=== PATIENT | male | born 1970 | race Caucasian/White ===

== ENCOUNTER 2019-09-05 05:58 | Emergency (ER) | payer OTHER, SELFPAY ==
--- NOTE | ~2019-09-05 | US_ITS ---
EXAMINATION: US venous doppler [facility] DATE: 09/05/2019 07:35 INDICATION: Left lower limb pain and redness TECHNIQUE: Buchanan scale images without and with compression and Doppler images of the left lower extrem ity veins were obtained. COMPARISON: None FINDINGS: The left common femoral vein, profunda femoral vein, femoral vein, popliteal vein, peroneal trunk, posterior tibial veins, and greater saphenous vein are patent. There is thrombosis and superf icial varicose veins of the medial calf in the area of clinical concern. IMPRESSION: 1. Patent left lower extremity veins. No evidence of deep venous thrombosis. 2. Thrombosis in superficial varicose veins of the medial calf. Reviewed, dictated and finalized at location A.
[2019-09-05 06:06] VITALS: BP 180/108; PULSE 64; RESP 16; TEMP 36.9; O2SAT 98
[2019-09-05 06:43] LABS: Basophils Percent Auto 0.3 % (0.2-1.2); Eosinophils Absolute Auto 0.1 K/mm3 (0-0.3); Eosinophils Percent Auto 1.7 % (0-4.4); Hematocrit 44.2 % (42.0-52.0); Hemoglobin 14.5 g/dL (14.0-18.0); Immature Granulocyte Absolute 0.01 K/mm3 (0.00-0.031); Immature Granulocyte Percent A 0.2 % (0-0.5); Lymphocytes Absolute Auto 2.75 K/mm3 (0.9-3.2); Lymphocytes Percent Auto 43.5 % (18.3-44.2); Mean Corpuscular HGB Conc 32.8 g/dl (32-36); Mean Corpuscular Hemoglobin 32.4 pg (26-34); Mean Corpuscular Volume 98.9 fl (80-100); Mean Platelet Volume 8.2 fl (7.4-10.4); Monocytes Absolute Auto 0.6 K/mm3 (0.1-0.6); Monocytes Percent Auto 9.3 % (2.6-8.5); Neutrophils Absolute Auto 2.8 K/mm3 (1.3-6.7); Platelet Count Result 280 k/mm3 (150-375); Red Blood Count 4.47 M/mm3 (4.6-6.20); Red Cell Distribution Width 14.1 % (11.5-14.5); White Blood Count 6.3 K/mm3 (4.5-10.0)
[2019-09-05 06:51] LABS: Prothrombin Time 12.6 Seconds (11.1-14.7)
[2019-09-05 06:57] LABS: Alanine Aminotransferase 16 U/L (4-50); Albumin Level 3.9 g/dL (3.5-5.1); Alkaline Phosphatase 58 U/L (38-126); Aspartate Amino Transferase 21 U/L (17-59); Bilirubin,Total 0.5 mg/dL (0.2-1.3); Blood Urea Nitrogen 7 mg/dL (9-20); CRP 0.8 mg/dL (<1.0); Calcium 8.7 mg/dL (8.4-10.2); Carbon Dioxide 31 mmol/L (22-30); Chloride 105 mmol/L (98-107); Estimated Glomerular Filt Rate > 60; Glucose 107 mg/dL (75-110); Sodium 139 mmol/L (137-145)
--- NOTE | 2019-09-05 07:04 | ED.EXTPRO ---
HPI - Extremity Problem General Chief complaint: Extremity Problem,Nontraumatic Stated complaint: blood clot in my leg. Left leg pain Time Seen by Provider: 09/05/19 07:02 History of Present Illness HPI Narrative: Patient presents with a sore on his left calf. He noticed that yesterday. He cut the grass 3 days ago, no known trauma or bug bite. The red area is about 2 inches x 1 inch. He gauges it 5 out of 10 on pain, but has not taken any medicine like Tylenol or ibuprofen. He had a history of a blood clot many years ago. He is no longer on any blood thinners. He has not been sick in the last week or 2 no fever chills sweats or cough. He denies smoking drinking and drug. His surgeries include gastric sleeve, cholecystectomy, and carpal tunnel. MD Complaint: extremity pain and extremity swelling Onset (ago): day(s) Related Data Home Medications Medication Instructions Recorded Confirmed cholecalciferol (vitamin D3) 25 1,000 unit PO DAILY 04/13/19 mcg (1,000 unit) capsule duloxetine 60 mg capsule,delayed 60 mg PO DAILY 04/13/19 release ferrous sulfate 325 mg (65 mg 325 mg PO BID 04/13/19 iron) tablet fludrocortisone 0.1 mg tablet 0.1 mg PO .QOD tablet 04/13/19 iloperidone 4 mg tablet 4 mg PO BID tablet 04/13/19 armodafinil mg PO 09/05/19 brexpiprazole [Rexulti] mg 09/05/19 ibuprofen 800 mg PO TID 09/05/19 omeprazole 09/05/19 Allergies Allergy/AdvReac Type Severity Reaction Status Date / Time Mushroom Allergy Severe Hives / Uncoded 09/05/19 06:08 Red Face Review of Systems Review of Systems: Narrative: CONSTITUTIONAL: Denies fever, chills, or sweats. EYES: Denies visual changes, redness, or discharge. ENT: Denies rhinorrhea, congestion, sore throat, or otalgia. CARDIOVASCULAR: Denies chest pain, palpitations, or edema. RESPIRATORY: Denies cough or dyspnea. GASTROINTESTINAL: Denies abdominal pain, nausea, vomiting, or diarrhea. GENITOURINARY: Denies dysuria or hematuria. SKIN: Denies itching. MUSCULOSKELETAL: Denies back pain, joint pain, or myalgia. NEUROLOGIC: Denies headache, numbness, or weakness. PSYCHIATRIC: Denies anxiety or depression. [facility] Surgical History Surgical History (Updated 09/05/19 @ 07:11 by Batsheva Osborne MD) History of carpal tunnel release History of cholecystectomy Social History Social History Smoking status: Former smoker Smoking end date: 04/26/10 Alcohol intake: current Gender identity (if verbalized by the patient): Male Exam Narrative: Exam Narrative: GENERAL: Well-appearing, well-nourished, and in no acute distress.Morbid obesty. HEAD: Normocephalic, atraumatic. EYES: PERRLA and EOMI. ENT: Nares clear, no rhinorrhea or epistaxis. Mucous membranes moist. NECK: Supple. CHEST: Clear to auscultation. No respiratory distress. HEART: Regular rate and rhythm. No murmur heard. Normal peripheral pulses. ABDOMEN: Soft, nontender, nondistended, normal active bowel sounds. EXTREMITIES: Normal range of motion. An area on the upper inner left calf, about 2 inches x 1 inch, of redness and tenderness, no fluctuance, or drainage. SKIN: Warm, dry, no rash. NEURO: No focal deficits. Alert and oriented x3. PSYCH: Normal mood and affect. Course Reevaluation(s) Reevaluation #1: Went in to tell the patient about the small blood clot in a superficial varicose vein. He said the Tylenol did not make any difference, but that it did not really hurt. I explained that no blood thinners were necessary for superficial blood clots. He can use warm compresses, and Tylenol. He says that he does take ibuprofen despite his gastric sleeve, and I reminded him that he was not supposed to. He can resume normal activity Date: 09/05/19 Time: 08:11 Vital Signs Vital signs: Vital Signs Temperature 98.5 F 09/05/19 06:06 Pulse Rate 64 09/05/19 06:06 Respiratory Rate 16 09/05/19 06:06 Blood Pressure 180/108 H 05
--- NOTE | 2019-09-05 07:15 | PC.NURSE ---
Assumed pt care at this time from ALVIN Avalos, pt being taken to ultrasound in wheelchair by tech.
[2019-09-05] MEDS: CEPHALEXIN 500 MG CAPSULE PO (07:33)
[2019-09-05] MEDS: ACETAMINOPHEN 325 MG TABLET 650 MG PO (07:33)
[2019-09-05 07:35] VITALS: BP 175/103; PULSE 70; RESP 16; O2SAT 97
[2019-09-05 08:20] VITALS: BP 170/103; PULSE 65; RESP 18; O2SAT 100
== END 2019-09-05 08:21 | disposition home or self-care (01) ==
PROVIDERS: General Practice; Emergency Provider Emergency Medicine; PCP Family Medicine
DX: L03.116 Cellulitis of left lower limb (principal); I83.92 Asymptomatic varicose veins of left lower extremity; Z86.711 Personal history of pulmonary embolism; Z87.891 Personal history of nicotine dependence
CPT/HCPCS: 36415; 80053; 85025; 85610; 85730; 86140; 93971; 99284; A9270

== ENCOUNTER → 2019-11-17 11:41 | Outpatient (CLI) | payer OTHER, SELFPAY ==
--- NOTE | ~2019-11-17 | US_ITS ---
EXAMINATION: US venous doppler [facility] DATE: 11/17/2019 12:16 INDICATION: Lower limb pain. TECHNIQUE: Grayscale ultrasound images without and with compression and Doppler ultrasound images of the bilateral lower extremity veins were obtained. COMPARISON: Ultrasound 09/05/2019 FINDINGS: The visualized portions of right common femoral vein, profunda (deep) femoral vein, femoral vein, pop liteal vein, peroneal veins, posterior tibial veins, and greater saphenous vein outflow are patent. T here is a large right-sided Mcneill's cyst. The visualized portions of left common femoral vein, profunda femoral vein, femoral vein, popliteal v ein, peroneal veins, posterior tibial veins, and greater saphenous vein outflow are patent. IMPRESSION: 1. No deep venous thrombosis. 2. Large right-sided Mcneill's cyst. Reviewed, dictated and finalized at location A.
== END ==
PROVIDERS: PCP Family Medicine; Visit Provider Physician Assistant
DX: M79.89 Other specified soft tissue disorders (principal); M71.21 Synovial cyst of popliteal space [Baker], right knee
CPT/HCPCS: 93970

== ENCOUNTER 2021-05-14 00:58 | Day surgery (SDC) | payer OTHER, SELFPAY ==
[2021-05-02 14:27] VITALS: BMI 46.1
--- NOTE | 2021-05-14 02:22 | WPDANESEPPF ---
Anes - Initial Pre Proc Eval Procedure: Operation Date: 05/14/21 07:30 Proposed Procedures p Screening Colonoscopy - Dimitrios Odom MD Date/Time: 05/14/21 02:22 Surgeon: Dimitrios Odom MD Pre Op Diagnosis: neoplasm screening Patient Data Age: 50 Gender: M Height: 1.83 m Weight: 154.3 kg Allergies Allergy/AdvReac Type Severity Reaction Status Date / Time Mushroom Allergy Severe Hives / Uncoded 05/14/21 06:30 Red Face Home Medications Medication Instructions Recorded Confirmed Type cholecalciferol (vitamin D3) 25 1,000 unit PO DAILY 04/13/19 05/14/21 History mcg (1,000 unit) capsule duloxetine 60 mg capsule,delayed 60 mg PO DAILY 04/13/19 05/14/21 History release armodafinil 200 mg PO DAILY 09/05/19 05/14/21 History brexpiprazole [Rexulti] 2 mg PO DAILY 09/05/19 05/14/21 History ibuprofen 800 mg PO TID 09/05/19 05/14/21 History ferrous sulfate 325 mg (65 mg 325 mg PO BID #270 tablet 09/12/19 05/14/21 Rx iron) tablet omeprazole 20 mg capsule,delayed See Rx Instructions .ROUTE 07/22/20 05/14/21 Rx release .COMPLEX #180 capsule naltrexone 50 mg tablet 50 mg PO DAILY #30 tablet 03/04/21 05/14/21 Rx loratadine 10 mg tablet See Rx Instructions .ROUTE 04/01/21 05/14/21 Rx .COMPLEX #90 tablet cyanocobalamin (vitamin B-12) 100 mcg SUBCUT MONTHLY 05/02/21 05/14/21 History Patient hx anesthesia problems: none Family hx anesthesia problems: none Results Review: All pre-operative results and documents have been reviewed as part of the pre-operative evaluation. [facility] Past Medical History Medical History (Updated 05/14/21 @ 07:21 by Dimitrios Odom MD) ADD (attention deficit disorder) Anxiety Colon cancer screening Contracture, right elbow Diabetes type 2, controlled Essential hypertension Finger fracture, right Obstructive sleep apnea Personal history of malignant neoplasm of testis Trigger thumb of right hand Surgical History Surgical History (Updated 05/14/21 @ 02:23 by Cedrick Magana DO) History of carpal tunnel release History of cholecystectomy History of sleeve gastrectomy Family History Family History Mother Hypertension Family history of chronic obstructive pulmonary disease Diabetes mellitus Family history of malignant neoplasm of stomach Family history of kidney disease Family history of cardiovascular disease Father Family history of obesity Family history of cardiovascular disease Other Acute myocardial infarction Family history of congenital heart disease Malignant neoplasm of prostate Social History Social History Smoking status: Former smoker Tobacco type: cigars Smoking end date: 04/26/10 Additional smoking assessment comments: 5-6 PER DAY Alcohol intake: former Alcohol use details: DRANK A LOT PRIOR TO JAN 26 2021 Substance use type: does not use Living arrangements: with family Gender identity (if verbalized by the patient): Male Spiritual care concerns: No Anes - Eval Final PreProcedure Day of Procedure 05/14/21 02:22 Patient weight: morbidly obese Heart: regular rate and rhythm Lungs: clear to auscultation and normal air movement Airway: Mallampati scale class II Neurological: alert and oriented Last oral intake: >/= 8 hours ASA classification: III Emergent: no Anesthetic plan: proceed Anesthesia type and monitoring: general GIVS and standard monitoring Results Review: All pre-operative results and documents have been reviewed as part of the pre-operative evaluation. Informed Consent: The patient's anesthetic plan and its attendant risks and benefits were discussed with the patient/family/POA. Questions were solicited and answers provided to the satisfaction of the patient/family/POA.
[2021-05-14 06:20] VITALS: BP 154/97; PULSE 76; RESP 18; TEMP 36.4; O2SAT 100; BMI 47.8
[2021-05-14] MEDS: LACTATED RINGERS 1,000 ML 150 ML IV CONT (06:46)
--- NOTE | 2021-05-14 07:21 | PM.HPGS ---
History of Present Illness History of Present Illness Consent: Risks, benefits, and alternatives have been discussed and questions answered. Patient agrees to proceed with procedure. Chief complaint: neoplasm screening Narrative: Bo Mendoza is a 50 year old male here for first screening colonoscopy Review of Systems Constitutional: Constitutional: Denies headache(s) and Denies weakness Eyes: Eyes: Denies blurry vision ENT: Reports Normal hearing present, Denies headache(s) and Denies neck pain Cardiovascular: Cardiovascular: Denies chest pain and Denies dyspnea Respiratory: Respiratory: Denies dyspnea Gastrointestinal: Gastrointestinal: Reports no additional gastrointestinal complaints Genitourinary: Genitourinary: Denies dysuria Musculoskeletal: Musculoskeletal: Denies neck pain Integumentary/Breasts: Skin/Breast: Denies dry skin Neurologic: Reports Normal hearing present, Denies headache(s) and Denies weakness Psychiatric: Psychiatric: Denies anxiety Endocrine: Endocrine: Denies change in body appearance Hematologic/Lymphatic: Hematologic/Lymphatic: Denies easy bleeding Allergic/Immunologic: Allergic/Immunologic: Denies urticaria PMF Past Medical History Medical History (Updated 05/14/21 @ 07:21 by Dimitrios Odom MD) ADD (attention deficit disorder) Anxiety Colon cancer screening Contracture, right elbow Diabetes type 2, controlled Essential hypertension Finger fracture, right Obstructive sleep apnea Personal history of malignant neoplasm of testis Trigger thumb of right hand Surgical History Surgical History (Updated 05/14/21 @ 02:23 by Cedrick Magana DO) History of carpal tunnel release History of cholecystectomy History of sleeve gastrectomy Family History Family History Mother Hypertension Family history of chronic obstructive pulmonary disease Diabetes mellitus Family history of malignant neoplasm of stomach Family history of kidney disease Family history of cardiovascular disease Father Family history of obesity Family history of cardiovascular disease Other Acute myocardial infarction Family history of congenital heart disease Malignant neoplasm of prostate Social History Social History Smoking status: Former smoker Tobacco type: cigars Smoking end date: 04/26/10 Additional smoking assessment comments: 5-6 PER DAY Alcohol intake: former Alcohol use details: DRANK A LOT PRIOR TO JAN 26 2021 Substance use type: does not use Living arrangements: with family Gender identity (if verbalized by the patient): Male Spiritual care concerns: No Meds Home Medications and Allergies Home Medications Medication Instructions Recorded Confirmed Type cholecalciferol (vitamin D3) 25 1,000 unit PO DAILY 04/13/19 05/14/21 History mcg (1,000 unit) capsule duloxetine 60 mg capsule,delayed 60 mg PO DAILY 04/13/19 05/14/21 History release armodafinil 200 mg PO DAILY 09/05/19 05/14/21 History brexpiprazole [Rexulti] 2 mg PO DAILY 09/05/19 05/14/21 History ibuprofen 800 mg PO TID 09/05/19 05/14/21 History ferrous sulfate 325 mg (65 mg 325 mg PO BID #270 tablet 09/12/19 05/14/21 Rx iron) tablet omeprazole 20 mg capsule,delayed See Rx Instructions .ROUTE 07/22/20 05/14/21 Rx release .COMPLEX #180 capsule naltrexone 50 mg tablet 50 mg PO DAILY #30 tablet 03/04/21 05/14/21 Rx loratadine 10 mg tablet See Rx Instructions .ROUTE 04/01/21 05/14/21 Rx .COMPLEX #90 tablet cyanocobalamin (vitamin B-12) 100 mcg SUBCUT MONTHLY 05/02/21 05/14/21 History Allergies Allergy/AdvReac Type Severity Reaction Status Date / Time Mushroom Allergy Severe Hives / Uncoded 05/14/21 06:30 Red Face Vital Signs Vital Signs - 24 hr 05/14/21 06:20 Temperature 97.5 F L Pulse Rate 76 Respiratory Rate 18 Blood Pr
[2021-05-14 07:51] VITALS: BP 128/62; PULSE 76; RESP 29; O2SAT 100
[2021-05-14 08:01] VITALS: BP 110/70; PULSE 72; RESP 27; O2SAT 100
[2021-05-14 08:11] VITALS: BP 135/67; PULSE 67; RESP 25; O2SAT 100
== END 2021-05-14 08:20 | disposition home or self-care (01) ==
PROVIDERS: PCP Family Medicine; Visit Provider Internal Medicine Gastroenterology
PROC: 0DJD8ZZ Inspection of Lower Intestinal Tract, Via Natural or Artificial Opening Endoscopic (ICD-10-PCS; CPT 45378; principal; 2021-05-14 07:30)
DX: Z12.11 Encounter for screening for malignant neoplasm of colon (principal); K57.30 Diverticulosis of large intestine without perforation or abscess without bleeding; K64.8 Other hemorrhoids; F98.8 Other specified behavioral and emotional disorders with onset usually occurring in childhood and adolescence; E11.9 Type 2 diabetes mellitus without complications; I10 Essential (primary) hypertension; F41.9 Anxiety disorder, unspecified; G47.33 Obstructive sleep apnea (adult) (pediatric); Z85.47 Personal history of malignant neoplasm of testis; Z98.84 Bariatric surgery status; Z87.891 Personal history of nicotine dependence; E66.01 Morbid (severe) obesity due to excess calories; Z68.42 Body mass index [BMI] 45.0-49.9, adult
CPT/HCPCS: 45378; J2704; J7120

== ENCOUNTER 2022-06-24 13:15 | Emergency (ER) | payer OTHER, SELFPAY ==
--- NOTE | ~2022-06-24 | US_ITS ---
EXAMINATION: US venous doppler [facility] DATE: 06/24/2022 14:50 INDICATION: Left calf pain. TECHNIQUE: Grayscale ultrasound images without and with compression and Doppler ultrasound images of the left lower extremity veins were obtained. COMPARISON: Ultrasound 11/17/2019 FINDINGS: The visualized portions of left common femoral vein, profunda (deep) femoral vein, femoral vein, popl iteal vein, peroneal veins, posterior tibial veins, and greater saphenous vein outflow are patent. IMPRESSION: 1. No deep venous thrombosis. Reviewed, dictated and finalized at location A. [employer]
[2022-06-24 13:57] VITALS: BP 169/68; PULSE 84; RESP 16; TEMP 36.4; O2SAT 100
--- NOTE | 2022-06-24 14:33 | PC.NURSE ---
Patient off unit to US.
--- NOTE | 2022-06-24 15:30 | PC.NURSE ---
EDP at bedside to discuss plan of care with patient.
--- NOTE | 2022-06-24 15:36 | ED.EXTPRO ---
HPI - Extremity Problem General Chief complaint: Extremity Problem,Nontraumatic Stated complaint: L CALF PAIN Time Seen by Provider: 06/24/22 14:18 Source: patient Mode of arrival: ambulatory Limitations: no limitations History of Present Illness HPI Narrative: 51-year-old male presents today with complaints of left calf pain with redness that started about 3 days ago. Patient had concerns for possible DVT. Patient has no risk factors for DVT. Denies any recent travel, sedentary lifestyle. No swelling noted to the left leg. Redness to the left medial rudd area. No calf tenderness. At time of assessment ultrasound venous Doppler was already obtained and was negative for DVT. Patient denies any fevers, body aches, chills. Patient does have a history of having a hematoma to the left leg, and cellulitis multiple times in the past. Related Data Home Medications Medication Instructions Recorded Confirmed cholecalciferol (vitamin D3) 25 1,000 unit PO DAILY 04/13/19 03/29/22 mcg (1,000 unit) capsule duloxetine 60 mg capsule,delayed 60 mg PO DAILY 04/13/19 03/29/22 release (Cymbalta) brexpiprazole 2 mg tablet (Rexulti) 2 mg PO DAILY 09/05/19 03/29/22 ibuprofen 800 mg tablet 800 mg PO TID 09/05/19 03/29/22 cyanocobalamin (vitamin B-12) 100 mcg subcut MONTHLY 05/02/21 03/29/22 1,000 mcg/mL injection kit armodafinil 250 mg tablet 250 mg PO .qd 05/25/22 Allergies Allergy/AdvReac Type Severity Reaction Status Date / Time Mushroom Allergy Severe Hives / Uncoded 05/25/22 13:26 Red Face NKDA Allergy Mild NONE Uncoded 05/25/22 13:26 Review of Systems Review of Systems: CONSTITUTIONAL: Denies fever, chills, or sweats. EYES: Denies visual changes, redness, or discharge. ENT: Denies rhinorrhea, congestion, sore throat, or otalgia. CARDIOVASCULAR: Denies chest pain, palpitations, or edema. RESPIRATORY: Denies cough or dyspnea. GASTROINTESTINAL: Denies abdominal pain, nausea, vomiting, or diarrhea. GENITOURINARY: Denies dysuria or hematuria. SKIN: Denies rash or itching. MUSCULOSKELETAL: Left lower leg pain with redness. Denies back pain, joint pain, or myalgia. NEUROLOGIC: Denies headache, numbness, dizziness, or weakness. PSYCHIATRIC: Denies anxiety or depression. [facility] Past Medical History Medical History ADD (attention deficit disorder) Anxiety Colon cancer screening Contracture, right elbow Diabetes type 2, controlled Essential hypertension Finger fracture, right Obstructive sleep apnea Personal history of malignant neoplasm of testis Trigger thumb of right hand Surgical History Surgical History History of carpal tunnel release History of cholecystectomy History of sleeve gastrectomy Family History Family History Mother Hypertension Family history of chronic obstructive pulmonary disease Diabetes mellitus Family history of malignant neoplasm of stomach Family history of kidney disease Family history of cardiovascular disease Father Family history of obesity Family history of cardiovascular disease Other Acute myocardial infarction Family history of congenital heart disease Malignant neoplasm of prostate Social History Social History (Updated 05/25/22 @ 13:30 by Steve Howard MA) Smoking packs per day: 2 Smoking cigarettes per day: 40.0 Years smoked: 20 Smoking pack-years: 40.00 Smoking status: Former smoker Tobacco type: cigarettes and cigars Smoking end date: 04/26/10 Additional smoking assessment comments: 5-6 PER DAY Alcohol intake: former Alcohol use details: DRANK A LOT PRIOR TO JAN 26 2021 Substance use: never Substance use type: does not use Lack of Transportation: No Lack of Food: Never True Current Housing: I Have Housing Concerned About Future Housing: No
[2022-06-24] MEDS: CEPHALEXIN 500 MG CAPSULE PO (15:42)
== END 2022-06-24 15:52 | disposition home or self-care (01) ==
PROVIDERS: Emergency Provider Nurse Practitioner Family; PCP Family Medicine
DX: L03.116 Cellulitis of left lower limb (principal); I10 Essential (primary) hypertension; E11.9 Type 2 diabetes mellitus without complications; F98.8 Other specified behavioral and emotional disorders with onset usually occurring in childhood and adolescence; G47.33 Obstructive sleep apnea (adult) (pediatric); F41.9 Anxiety disorder, unspecified; Z85.47 Personal history of malignant neoplasm of testis; Z98.84 Bariatric surgery status; Z87.891 Personal history of nicotine dependence
CPT/HCPCS: 93971; 99284; A9270

== ENCOUNTER 2022-07-10 11:19 | Outpatient (CLI) | payer OTHER, SELFPAY ==
[2022-07-13 15:04] LABS: Kit Draw Collected
== END 2022-07-10 11:20 | disposition home or self-care (01) ==
LOC: ANHGOSHLAB 11:20
PROVIDERS: PCP Family Medicine; Visit Provider Family Medicine
DX: G47.33 Obstructive sleep apnea (adult) (pediatric) (principal); E66.01 Morbid (severe) obesity due to excess calories; E11.9 Type 2 diabetes mellitus without complications
CPT/HCPCS: 36415

== ENCOUNTER → 2022-08-24 09:45 | Outpatient (CLI) | payer OTHER, SELFPAY ==
--- NOTE | ~2022-08-24 | CT_ITS ---
CT of the Abdomen and Pelvis: Indication: Hematuria Technique: 2.5 mm axial scans were obtained through the abdomen and pelvis prior to and following in travenous administration of 130 cc of Omnipaque 350. Dose reduction technique was used on this scan b y utilizing automated exposure control and iterative reconstruction technique. The dose-length produc t (DLP) was 2461.57 mGy-cm. COMPARISON: 05/09/2012 Findings: Scans through the lung bases demonstrate bibasilar scarring/atelectatic change. The liver, spleen, pancreas, adrenals and kidneys are within normal limits. Cholecystectomy clips are present. No evidence of aortic aneurysm. No lymphadenopathy. No bowel obstruction or bowel wall thickening. There is no evidence to suggest acute appendicitis. Images through the pelvis were performed. Urinary bladder unremarkable. Prostate gland and seminal ve sicles are unremarkable. No ascites. Bilateral L5 pars interarticularis defects are present, with gra de 1 anterolisthesis of L5 over S1. Impression: No etiology for hematuria identified. Bilateral L5 pars interarticularis defects, with grade 1 anterolisthesis of L5 over S1. Reviewed, dictated and finalized at [facility]. Impression: No etiology for hematuria identified. Bilateral L5 pars interarticularis defects, with grade 1 anterolisthesis of L5 over S1.
[2022-08-24 10:04] LABS: Estimated Glomerular Filt Rate > 60
== END ==
PROVIDERS: PCP Family Medicine; Visit Provider Nurse Practitioner Family
DX: R31.0 Gross hematuria (principal)
CPT/HCPCS: 74178; Q9967

== ENCOUNTER 2023-11-28 12:06 | Emergency (ER) | payer BC, SELFPAY ==
--- NOTE | ~2023-11-28 | CT_ITS ---
EXAMINATION: CT orbit BI w con DATE: 11/28/2023 14:34 INDICATION: Left eye floaters TECHNIQUE: Computed tomography (CT) of the orbits was performed in conjunction with the CT angiograph y, using a total of 200 CC Omnipaque 350 intravenous contrast. The mA was adjusted according to patie nt size. Iterative reconstruction technique was employed. Exam dose: 2974.05 mGy-cm total exam DLP. COMPARISON: 12/05/2014 CT head FINDINGS: The ocular globes appear symmetric and unremarkable. Optic nerves and extraocular appear sy mmetric. No intraconal or extraconal mass lesion. The bony smallwood of the orbit are intact. The frontal sinuses, ethmoid air cells and maxillary sinuses are normally developed and aerated. IMPRESSION: No significant abnormality Reviewed, dictated and finalized at Location A. Reviewed, dictated and finalized at location J. IMPRESSION: No significant abnormality
--- NOTE | ~2023-11-28 | CT_ITS ---
EXAMINATION: CTA brain carotid DATE: 11/28/2023 14:37 INDICATION: Left eye floaters TECHNIQUE: Computed tomography angiography (CTA) of the chest was performed with 200 CC Omnipaque 350 intravenous contrast timed to evaluate the pulmonary arteries. Coronal maximum intensity projection 3D-reconstructions were created by the technologist. Automated exposure control and iterative reconst ruction technique were employed. Exam dose: 2974.05 mGy-cm total exam DLP. Carotid COMPARISON: 07/05/2018 CT brain, reported normal FINDINGS: The aortic arch and great vessels are intact. No superior mediastinal mass lesion or lymphadenopathy. The common carotid arteries are patent. There is mild right and minimal left carotid bulb calcified plaque with no significant luminal stenos is of the cervical internal carotid arteries. There is minimal calcified plaque of the carotid siphon internal carotid arteries. No significant lum inal stenosis of the intracranial carotid circulation. The vertebral arteries are patent, left vertebral artery dominant. The basilar artery appears normal. The [place] appears intact. No internal carotid, anterior or middle cerebral artery or basil ar or posterior cerebral artery aneurysms or occlusions are identified. No intracranial mass lesion or hemorrhage or cerebrovascular accident. No midline shift or mass effec t. No subdural or epidural hematoma. No intraconal or extraconal orbital mass. The orbital globes appear symmetric and unremarkable. No skull fracture or bone destruction. The paranasal sinuses and mastoid air cells are well-developed and aerated. IMPRESSION: Mild calcified atherosclerosis, without significant stenosis, occlusion, dissection or a neurysm of the vertebrobasilar or cervical or intracranial carotid circulations Reviewed, dictated and finalized at [facility]. Reviewed, dictated and finalized at [facility]. IMPRESSION: Mild calcified atherosclerosis, without significant stenosis, occl usion, dissection or aneurysm of the vertebrobasilar or cervical or intracrania l carotid circulations
[2023-11-28 12:10] VITALS: BP 169/93; PULSE 73; RESP 20; TEMP 36.4; O2SAT 98
--- NOTE | 2023-11-28 13:06 | ED.EYEPROB ---
HPI - Eye Problem General Chief complaint: Eye Problems Stated complaint: eye floaters Time Seen by Provider: 11/28/23 12:44 History of Present Illness HPI Narrative: Patient is a 53-year-old male who presents ER with abnormal vision. Spontaneously yesterday after dropping off a door-order he started having floaters in his left eye. He says it is smoking in like they are a 1000 dots in his visual field. He is still able to see. He also has green string like floaters going through his visual field. No pain in the eye. No trauma to the eye. Patient is on Eliquis because he has history of recurrent thrombophlebitis. Patient has had a lens replacement in the same eye. He does not use glasses or contacts. Related Data Home Medications Medication Instructions Recorded Confirmed duloxetine 60 mg capsule,delayed 60 mg PO DAILY 04/13/19 11/18/23 release (Cymbalta) brexpiprazole 2 mg tablet (Rexulti) 2 mg PO DAILY 09/05/19 11/18/23 Allergies Allergy/AdvReac Type Severity Reaction Status Date / Time Mushroom Allergy Severe Hives / Uncoded 11/18/23 11:01 Red Face NKDA Allergy Mild NONE Uncoded 11/18/23 11:01 Review of Systems Constitutional: Constitutional: Reports no additional constitutional complaints Eyes: Eyes: Denies change in vision and Denies photophobia Comments: Floaters ENT: Reports system reviewed and no additional complaints, except as documented [facility] Past Medical History Medical History ADD (attention deficit disorder) Anxiety Contracture, right elbow Diabetes type 2, controlled Essential hypertension Finger fracture, right Gross hematuria Left knee DJD Left knee pain Obstructive sleep apnea Personal history of malignant neoplasm of testis Trigger thumb of right hand Surgical History Surgical History History of carpal tunnel release History of cholecystectomy History of sleeve gastrectomy Family History Family History Mother Hypertension Family history of chronic obstructive pulmonary disease Diabetes mellitus Family history of malignant neoplasm of stomach Family history of kidney disease Family history of cardiovascular disease Father Family history of obesity Family history of cardiovascular disease Other Acute myocardial infarction Family history of congenital heart disease Malignant neoplasm of prostate Social History Social History Smoking packs per day: 2 Smoking cigarettes per day: 40.0 Years smoked: 20 Smoking pack-years: 40.00 Smoking status: Former smoker Tobacco type: cigarettes and cigars Smoking end date: 04/26/10 Additional smoking assessment comments: 5-6 PER DAY Alcohol intake: former Alcohol use details: DRANK A LOT PRIOR TO JAN 26 2021 Substance use: never Substance use type: does not use Lack of Transportation: No Lack of Food: Never True Current Housing: I Have Housing Concerned About Future Housing: No Difficulty Paying Gas/Electric Bills: No Difficulty Paying for Meds: No Currently Unemployed: No Education: Trade/Vocational Certificate Difficulty w/ Childcare or Family Care: No Living arrangements: with family Gender identity (if verbalized by the patient): Male Spiritual care concerns: No Exam Narrative: GENERAL: Well-appearing, obesity, and in no acute distress. HEAD: Normocephalic, atraumatic. EYES: PERRLA and EOMI. Left eye 20/30 visual acuity, right eye 20/70. Left eye with 14 mmHg intra-ocular pressure. No scleral injection. ENT: Mucous membranes moist.. EXTREMITIES: Normal range of motion. No edema. SKIN: Warm, dry, no rash. NEURO: Alert and oriented x3. PSYCH: Normal mood and affect. Course Vital Signs Vital signs:
[2023-11-28 13:51] LABS: Basophils Percent Auto 0.4 % (0.2-1.2); Eosinophils Absolute Auto 0.1 K/mm3 (0-0.3); Eosinophils Percent Auto 1.1 % (0-4.4); Hemoglobin 14.6 g/dL (14.0-18.0); Immature Granulocyte Absolute 0.02 K/mm3 (0.00-0.031); Immature Granulocyte Percent A 0.3 % (0-0.5); Lymphocytes Absolute Auto 2.71 K/mm3 (0.9-3.2); Lymphocytes Percent Auto 34.5 % (18.3-44.2); Mean Corpuscular Hemoglobin 33.7 pg (26-34); Mean Corpuscular Volume 99.3 fl (80-100); Mean Platelet Volume 8.4 fl (7.4-10.4); Monocytes Absolute Auto 0.8 K/mm3 (0.1-0.6); Monocytes Percent Auto 10.3 % (2.6-8.5); Neutrophils Absolute Auto 4.2 K/mm3 (1.3-6.7); Neutrophils Percent Auto 53.4 % (45.5-73.1); Platelet Count Result 308 k/mm3 (150-375); Red Blood Count 4.33 M/mm3 (4.6-6.20); Red Cell Distribution Width 15.1 % (11.5-14.5); White Blood Count 7.9 K/mm3 (4.5-10.0)
[2023-11-28 13:53] LABS: Alanine Aminotransferase 31 U/L (6-50); Alkaline Phosphatase 71 U/L (38-126); Anion Gap 5 mmol/L (4-12); Aspartate Amino Transferase 30 U/L (17-59); Bilirubin,Total 0.7 mg/dL (0.2-1.3); Blood Urea Nitrogen 8 mg/dL (9-20); Calcium 8.7 mg/dL (8.4-10.2); Carbon Dioxide 29 mmol/L (22-30); Chloride 104 mmol/L (98-107); Estimated CRCL calculation 142 ml/min; Estimated Glomerular Filt Rate > 60; Glucose 84 mg/dL (65-110); Potassium 4.1 mmol/L (3.4-5.0); Sodium 138 mmol/L (137-145)
[2023-11-28 13:54] LABS: Prothrombin Time 13.4 Seconds (11.1-14.7)
[2023-11-28 13:55] LABS: CRP < 0.5 mg/dL (<1.0); Partial Thromboplastin Time 30.7 Seconds (22.3-36.8)
[2023-11-28 14:34] VITALS: O2SAT 97
[2023-11-28 14:40] LABS: Erythrocyte Sedimentation Rate 16 mm/hr (0-20)
[2023-11-28 15:37] VITALS: BP 162/101; PULSE 84; RESP 20; TEMP 36.3; O2SAT 97
== END 2023-11-28 15:41 | disposition short-term general hospital (02) ==
PROVIDERS: Emergency Provider Emergency Medicine; PCP Family Medicine
DX: H43.392 Other vitreous opacities, left eye (principal); E11.9 Type 2 diabetes mellitus without complications; M17.12 Unilateral primary osteoarthritis, left knee; G47.33 Obstructive sleep apnea (adult) (pediatric); F98.8 Other specified behavioral and emotional disorders with onset usually occurring in childhood and adolescence; F41.9 Anxiety disorder, unspecified; Z98.84 Bariatric surgery status; Z85.47 Personal history of malignant neoplasm of testis; Z87.891 Personal history of nicotine dependence; Z90.49 Acquired absence of other specified parts of digestive tract; Z79.01 Long term (current) use of anticoagulants; Z79.899 Other long term (current) drug therapy; I67.2 Cerebral atherosclerosis; Z79.85 Long-term (current) use of injectable non-insulin antidiabetic drugs
CPT/HCPCS: 36415; 70481; 70496; 70498; 80053; 85025; 85610; 85652; 85730; 86140; 99284; Q9967

== ENCOUNTER 2024-09-29 10:35 | Outpatient (CLI) | payer BC, SELFPAY ==
--- NOTE | ~2024-09-29 | CT_ITS ---
EXAMINATION: CT diagnostic chest w con DATE: 09/29/2024 11:34 INDICATION: R93.89 - Abnormal findings on diagnostic imaging of other... TECHNIQUE: Computed tomography (CT) of the chest was initiated with 75 mL Omnipaque-350 intravenous c ontrast. Liner Inserter topogram was obtained. Per notation of the technologist the patient became verbally ag gressive, sat up and got off of the table during the beginning of the scan and no images were obtaine d. No further imaging was obtained. The dose-length product was 0.00 mGy-cm. COMPARISON: None FINDINGS/IMPRESSION: Liner Inserter topogram demonstrates clear lungs and an enlarged cardiac silhouette. No CT images obtained due to patient noncompliance. Reviewed, dictated and finalized at location A.
--- OUTSIDE RECORDS SUMMARY | 2024-09-29 10:39 | XMS_ITS | Encounter Summary ---
Author Organization [facility] Address [address] [place] [address] Phone Care Team Providers Care [employer]acher [employer] Name Role Phone Tiana Charles MD Primary Care Provider [phone] Encounter Details Date Type Department Care Team (Late st Contact Info) Description 08/28/2024 Telephone [facility] Oncology Services [address] [place] [address] Tiana Charles MD [address] [facility] [place] [address] Social History Tobacco Use Types Packs/Day Years Used Date Smoking Tobacco: Former Cigarettes 2 16.4 2 009 - 1992 Passive Smoke Exposure: Never Smokeless Tobacco: Never Alcohol Use Standard Drinks/Week Comments Not Currently 0 (1 standard drink = 0.6 oz pur e alcohol) Sex and Gender Information Value Date Recorded Sex Assigned at Not on file Legal Sex Male 9:42 PM CDT Gender Identity Not on file Sexual Orientation Not on file documented as of this encounter Miscellaneous Notes * Telephone Encounter - Dee Mckinnon PAC - 08/28/2024 4:33 PM CDT noted * Telephone Encounter - Yesenia Jackson MA - 08/28/2024 4:13 PM CDT Called patient to notify him to have labs done prior to appointment with metal patternmaker, Dee Mckinnon. Patient stated he wouldn't be able to have them done until mid week, so I suggested to push him out due to it taking a few days to receive results back from [facility]. Offered patient a new appointmentday and time. He eventually told me he didn't want to deal with the appointment, and wanted to cancel altogether. Made patient aware to call the office if anything changes. documented in this encounter Plan of Treatment Not on file documented as of this encounter Visit Diagnoses Not on filedocumented in this encounter Care Teams [employer] Relationship Specialty Start Date End Date Tiana Charles MD [address] [facility] [place] [address] PCP - General Family Medicine 07/11/24 documented as of this encounter
--- OUTSIDE RECORDS SUMMARY | 2024-09-29 10:40 | XMS_ITS | Clinical Summary ---
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 Active Rexulti 2 MG Tablet Take 1 Tablet by mouth daily. Active DULoxetine (CYMBALTA) [address] Particles Take 60 mg by mouth daily. 08/05/2016 Active ferrous sulfate (RA Iron) 325 (65 Fe) MG Tablet Take 1 Tablet by mouth daily. 08/05/2016 Active losartan (COZAAR) 50 MG Tablet Take 75 mg by mouth daily. Active naltrexone (DEPADE) 50 MG Tablet Take 50 mg by mouth daily. Active omeprazole (PriLOSEC) 40 MG CAPSULE DELAYED RELEASE Take 40 mg by mouth daily. Active Multiple Vitamin (MULTIVITAMIN PO) Take by mouth daily. Active MAGNESIUM PO Take 500 mg by mouth daily. Active Active Problems Problem Noted Date Diagnosed Date Personal history of gastric bypass 07/11/2024 Obstructive sleep apnea on CPAP 07/11/2024 Chronic bronchitis 07/11/2024 Iron deficiency anemia secon atul to inadequate dietary iron intake 07/11/2024 Encounters Date Type Department Care Team Description 08/28/2024 [facility]phone [facility] [address] [place] [address] Tiana Charles MD 07/14/2024 1:00 PM CDT Clinical Support [facility] Oncology Services [address] [place] [address] Dee Mckinnon, PAC Iron deficiency anemia secondary to inadequate dietary iron intake (Primary Dx) Discharge Disposition: Discharged to home or Selfcare 07/14/2024 Travel 07/11/2024 2:00 PM CDT Initial Consult [facility] Oncology Services [address] [place] [address] Dee Mckinnon, PAC Iron deficiency anemia secondary to inadequate dietary iron intake (Primary Dx) Discharge Disposition: Discharged to home or Selfcare 07/11/2024 Travel from Last 3 Months Family History Medical History Relation Name Comments Cancer Maternal Grandmother Heart Disease Maternal Grandmother Cancer Mother Heart Disease Mother Relation Name Status Comments Maternal Grandmother Mother Social History Tobacco Use Types Packs/Day Years [...] on file Sexual Orientation Not on file Last Filed Vital Signs Vital Sign Reading Time Taken Comments Blood Pressure 172/99 07/14/2024 2:09 PM CDT Pulse 97 07/14/2024 2:09 PM CDT Temperature 35.9 C (96.6 F) 07/14/2024 2:09 PM CDT Respiratory Rate 22 07/14/2024 2:09 PM CDT Oxygen Saturation 90% 07/14/2024 2:09 PM CDT Inhaled Oxygen Concentration - - Weight 161.8 kg (356 lb 11.2 oz) 07/11/2024 1:40 PM CDT Height 182.9 cm (6') 07/11/2024 1:40 PM CDT Body Mass Index 48.38 07/11/2024 1:40 PM CDT Plan of Treatment Health Maintenance Due Date Last Done Comments Hepatitis C Virus (HCV) Screening 1970 TdaP Immunization 1970 Hepatitis B Immunization (1 of 3 - 19+ 3-dose series) 1989 Colonoscopy 09/06/2015 Colorectal Cancer Screening 09/06/2015 Cologuard 2020 Immunochemical Fecal Occult Blood 2020 Zoster Immunization (1 of 2) 2020 Respiratory Syncytial Virus (RSV) Immunization (Adult) (1 - 1-dose 75+ series) 2045 Influenza Immunization Completed 4, 01/11/2022, 02/13/2020, Additional history exists Pneumococcal Immunization (50+ years) Completed 03/16/2024 SARS-COV-2 Immunization Completed 03/16/20 24, 01/11/2022, 03/04/2021, Additional history exists Human Papillomavirus (HPV) Immunization Aged Out No longer eligible based on patient's age to complete this topic Meningococcal Immunization (ACWY) Aged Out No longer eligible based on patient's age to complete this topic Rotavirus Immunization Aged Out No lo nger eligible based on patient's age to complete this topic Insurance [facility] Care Teams 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
--- OUTSIDE RECORDS SUMMARY | 2024-09-29 10:40 | XMS_ITS | Patient Health Record ---
Author Organization [facility] [employer] Address [address] [facility] [address] [place] [address] Care Team Providers Care Paper Testing Supervisor Name Role Phone Martin Luke Unavailable [phone] Bird Dick Unavailable [phone] Allergies No Known Allergies Results Component Value Reference Range Notes Stimulants Reviewed date:09/01/2024 12:11:16 PM Interpretation: Performing Lab:[address] [place] [address], Director - [id number] Notes/Report: Phentermine NEGATIVE 100.0 ng/mL Not Medicated Consistent Methylphenidate NEGATIVE 50.0 ng/mL Not Medicate d Consistent Methamphetamine NEGATIVE 100.0 ng/mL Not Medicate d Consistent Amphetamine NEGATIVE 100.0 ng/mL Not Medicated Consistent Naltrexone Reviewed date:09/01/2024 12:11:11 PM Interpretation: Performing Lab: Notes/Report: An exception occurred while processing this report and so it has incomplete data. Please contact [employer] for assistance. PDF Report [email or web address] UDT Reviewed date:08/25/2024 01:27:24 PM Interpretation: Performing Lab: Notes/Report: THC N 0 - 50 ng/ml Cocaine N 0 - 300 ng/ml Amphetamine N 0 - 1000 ng/ml Buprenorphine (BUP) N 0 - 10 ng/ml Secobarbital (Bar) N 0 - 300 ng/ml Oxazepam (BZO) N 0 - 300 ng/ml 7-ffpzyagtum-3,6-gjxdqykj-5, 3-dipheny lpyrrolidine (EDDP) N 0 - 300 ng/ml Methamphetamine (MET) N 0 - 1000 ng/ml Methylenedioxymethamphetamine (MDMA) N 0 - 500 ng/ml Morphine (MOP 300/[id number]) N 0 - 300 ng/ml Methadone (MTD) N 0 - 300 ng/ml Phencyclidine (PCP) N 0 - 25 ng/ml Nortriptyline (TCA) N 0 - 1000 ng/ml Oxycodone N 0 - 300 ng/ml UDT Reviewed date:07/24/2024 09:36:08 AM Interpretation: Performing Lab: Notes/Report: THC N 0 - 50 ng/ml Cocaine N 0 - 300 ng/ml Amphetamine N 0 - 1000 ng/ml Buprenorphine (BUP) N 0 - 10 ng/ml Secobarbital (Bar) N 0 - 300 ng/ml Oxazepam (BZO) N 0 - 300 ng/ml 1-onkafosihk-5,9-yprybfos-3, 3-dipheny lpyrrolidine (EDDP) N 0 - 300 ng/ml Methamphetamine (MET) N 0 - 1000 ng/ml Methylenedioxymethamphetamine (MDMA) N 0 - 500 ng/ml Morphine (MOP 300/[id number]) N 0 - 300 ng/ml Methadone (MTD) N 0 - 300 ng/ml Phencyclidine (PCP) N 0 - 25 ng/ml Nortriptyline (TCA) N 0 - 1000 ng/ml Oxycodone N 0 - 300 ng/ml Reason For Referral No Information Medications Medication SIG (Take, Route, Frequency, Duration) Notes Start Date End Date Status DULoxetine HCl 60 MG 1 capsule Oral Once a day for 90 days do not fill until pt requests Active Omeprazole 40 MG TAKE 1 CAPSULE BY MOUTH EVERY DAY Oral for 90 Days Active Potassium & Magnesium Aspartat Active Losartan Potassium 50 MG 1.5 tablet Orally Once a day Active Naltrexone HCl 50 MG 1 tablet Oral Once a day for 30 days Active Multivitamin Active Magnesium 250 MG 2 capsule Orally Once a day Active Eliquis 5 MG TAKE 1 TABLET BY MOUTH TWICE DAILY Oral for 90 Days Not-Taking Armodafinil 200 MG 1 tablet Oral Once a day for 90 days 08/25/2024 Active Rexulti 2 MG 1 tablet Orally Once a day for 90 days Active Immunizations Vaccine Route Administration Date Status Comme nts Influenza virus vaccine, quadrivalent (IIV4), split virus, 0.25 mL dosage Unknown 02/01/2018 Administered Influenza virus vaccine, quadrivalent (IIV4), split virus, 0.25 mL dosage Unknown 01/16/2019 Administered Influenza, injectable, MDCK, preservative free Unknown 02/13/2020 Administered Pfizer Biontech Covid-19 Vac cine 2nd dose Unknown 07/20/2020 Administered Pfizer Biontech Covid-19 Vac cine 2nd dose Unknown 08/10/2020 Administered Pfizer Biontech Covid-19 Vac cine 2nd dose Unknown 03/04/2021 Administered Social History Tobacco Use: Social History Observation Description Date Details (start date - stop date) Former Smoker NA - NA Sex Assigned At : Social History Observation Description Sex Assigned At Male Tobacco Control (Standard) Question Answer Notes Tobacco use: Former smoker Problems Problem Type SNOMED Code ICD Code Onset Dates Problem Status W/U Status Risk Notes Problem Alcohol dependence (81091976) Alcohol dependence, uncomplicated (F10.20) Active confirmed Problem Severe recurrent major depression without psychotic features (54768637) Major depressive disorder, 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.2) Active confirmed Problem Generalized anxiety disorder (74034387) Generalized anxiety disorder (F41.1) Active confirmed Problem Attention deficit hyperactivity disorder, predominantly inattentive type (50984297) Attention-deficit hyperactivity disorder, predominantly inattentive type (F90.0) Active confirmed Problem Obstructive sleep apnea syndrome (disorder) (72680290) Obstructive sleep apnea (adult) (pediatric) (G47.33) Active confirmed Problem 242882426 Encounter for screening for depression (Z13.31) Active confirmed Problem 767876066 MDD (major depressive disorder), recurrent episode, mild (F33.0) Active confirmed Problem 026993107 Alcohol dependence in remission (F10.21) Active confirmed Problem 76969578 Essential hypertension (I10) Active confirmed Vital Signs Heart Rate 78 /min 08/25/2024 Height-cm 182.91 cm 08/25/2024 Blood pressure diastolic 90 mm Hg 08/25/2024 Weight-kg 166.38 kg 08/25/2024 Height 72.01 in 08/25/2024 Blood pressure systolic 160 mm Hg 08/25/2024 Weight 366.8 lbs 08/25/2024 BMI 49.73 kg/m2 08/25/2024 Encounters Encounter Location Date Provider Diagnosis [facility] [facility] [address] [place] [address] 11/23/2023 Thena Mayelin Alcohol dependence, uncomplicated F10.20 [facility] [employer] [address] [place] [address] 12/17/2023 Thena Mayelin Alcohol dependence, uncomplicated F10.20 ; Major depressive disorder, recurrent severe without psychotic features F33.2 and Generalized anxiety disorder F41.1 [facility] [employer] [facility] [address] [place] [address] 03/31/2024 Thena Mayelin Major depressive disorder, recurrent severe without psychotic features F33.2 ; Alcohol dependence, uncomplicated F10.20 ; Essential hypertension I10 ; Obstructive sleep apnea (adult) (pediatric) G47.33 and Attention-deficit hyperactivity disorder, predominantly inattentive type F90.0 [facility] [employer] [facility] [address] [place] [address] 07/24/2024 Martin Clubb Major depressive disorder, recurrent severe without psychotic features F33.2 ; Alcohol dependence in remission F10.21 ; Obstructive sleep apnea (adult) (pediatric) G47.33 ; Attention-deficit hyperactivity disorder, predominantly inattentive type F90.0 ; Essential hypertension I10 ; Encounter for screening for depression Z13.31 and Benign essential HTN I10 [facility] [employer] [facility] [address] [place] [address] 08/25/2024 Martin Clubb Attention-deficit hyperactivity disorder, predominantly inattentive type F90.0 ; MDD (major depressive disorder), recurrent episode, mild F33.0 ; Alcohol dependence, uncomplicated F10.20 ; Obstructive sleep apnea (adult) (pediatric) G47.33 ; Encounter for screening for depression Z13.31 and Benign essential HTN I10 [facility] [employer] [facility] [address] [place] [address] 11/24/2023 Thena Mayelin [facility] [address] [place] [address] 08/01/2024 Martin Clubb Alcohol dependence, uncomplicated F10.20 [facility] [employer] [facility], [facility] [address] [place] [address] 08/08/2024 Martin Clubb Alcohol dependence, uncomplicated F10.20 [facility] [employer] [facility] [address] [place] [address] 08/18/2024 Martin Clubb [facility] [address] [place] [address] 08/18/2024 Martin Clubb Alcohol dependence, uncomplicated F10.20 [facility] [address] [place] [address] 08/25/2024 Martin Clubb Obstructive sleep ap tomas (adult) (pediatric) G47.33 [facility] [address] [place] [address] 11/24/2023 Bird Dick Assessments Encounter Date Diagnosis (ICD Code) Assessment Notes Treatment Notes Treatment Clinical Notes Section Notes 12/17/2023 Alcohol dependence, uncomplicated (ICD-10 - F10.20) 12/17/2023 Major depressive disorder, recurrent severe without psychotic features (ICD-10 - F33.2) 03/31/2024 Major depressive disorder, recurrent severe without psychotic features (ICD-10 - F33.2) 07/24/2024 Major depressive disorder, recurrent severe without psychotic features (ICD-10 - F33.2) SSRI/SNRI side effects discussed including but not limited to, gastric upset, nausea, vomiting, diarrhea and/or constipation, weight changes, sexual side effects including loss of libido, increased suicidal thoughts/behavi ors in children and young adults, and serotonin syndrome. 08/01/2024 Alcohol dependence, uncomplicated (ICD-10 - F10.20) 08/08/2024 Alcohol dependence, uncomplicated (ICD-10 - F10.20) 08/18/2024 Alcohol dependence, uncomplicated (ICD-10 - F10.20) 08/25/2024 Obstructive sleep apnea (adult) (pediatric) (ICD-10 - G47.33) 07/24/2024 Alcohol dependence in remission (ICD-10 - F10.21) 08/25/2024 Attention-deficit hyperactivity disorder, predominantly inattentive type (ICD-10 - F90.0) 08/25/2024 MDD (major depressive disorder), recurrent episode, mild (ICD-10 - F33.0) 08/25/2024 Alcohol dependence, uncomplicated (ICD-10 - F10.20) 07/24/2024 Obstructive sleep apnea (adult) (pediatric) (ICD-10 - G47.33) 12/17/2023 Generalized anxiety disorder (ICD-10 - F41.1) 03/31/2024 Alcohol dependence, uncomplicated (ICD-10 - F10.20) 11/23/2023 Alcohol dependence, uncomplicated (ICD-10 - F10.20) 03/31/2024 Essential hypertension (ICD-10 - I10) 07/24/2024 Attention-deficit hyperactivity disorder, predominantly inattentive type (ICD-10 - F90.0) 08/25/2024 Obstructive sleep apnea (adult) (pediatric) (ICD-10 - G47.33) 08/25/2024 Encounter for screening for depression (ICD-10 - Z13.31) 07/24/2024 Essential hypertension (ICD-10 - I10) 03/31/2024 Obstructive sleep apnea (adult) (pediatric) (ICD-10 - G47.33) 03/31/2024 Attention-deficit hyperactivity disorder, predominantly inattentive type (ICD-10 - F90.0) 07/24/2024 Encounter for screening for depression (ICD-10 - Z13.31) 08/25/2024 Benign essential HTN (ICD-10 - I10) 07/24/2024 Benign essential HTN (ICD-10 - I10) 07/24/2024 Other Assessment and plan reviewed with patient Call for problems with medication, side effects or need for dosage change Compliance issues reviewed Discussed the risks/benefits of this medication Discussed medication side effects Return if symptoms worsen Treatment options reviewed. discussed that it can take weeks to see full therapeutic effects of psychotropic medications. discussed when to seek emergency services. discussed crisis prevention hotline 988. patient with a history of Depression, ADHD, GINI, alcoholism, obstructive sleep apnea, and hypertension, presents with depressive symptoms, anxiety, and fatigue, reporting improvement after a recent iron infusion. Major Depressive Disorder Assessment: Patient reports significant depressive symptoms including sadness, feelings of failure, lack of satisfaction, guilt, self-disappointme nt, self-blame, irritability, decreased interest in people, indecisiveness, feeling unattractive, difficulty initiating tasks, early waking, inability to return to sleep, fatigue, and almost no interest in sex. Burroughs's Depression Inventory score of 27 indicates moderate depression. These symptoms, along with the patient's history and current medication regimen (Rexulti and duloxetine), support a diagnosis of Major Depressive Disorder. The recent iron infusion appears to have improved some symptoms, particularly sleep and energy levels. Plan: - Continue Rexulti 2 mg PO daily - Continue duloxetine 60 mg PO daily - Follow up in one month to reassess depressive symptoms and medication efficacy Generalized Anxiety Disorder (GINI) Assessment: Patient's GINI score has increased from 7 to 10 since the last visit on March 31, indicating a slight worsening of anxiety symptoms. The patient reports excessive worry about physical problems and rates current anxiety as 5 out of 10. The upcoming job change may be contributing to increased stress and anxiety. Plan: - Continue current medication regimen for anxiety management - Encourage use of stress-reduction techniques, particularly in preparation for new job - Reassess anxiety symptoms at next follow-up appointment Attention Deficit Hyperactivity Disorder (ADHD)/ JOSELO Assessment: Patient reports difficulty concentrating, especially in the afternoon. This is consistent with the diagnosis of ADHD. The patient is currently out of armodafinil, which may be exacerbating attention issues. Plan: - Refill armodafinil 200 mg PO daily - Assess efficacy of ADHD medication at next follow-up appointment History of Alcohol Use Disorder Assessment: Patient reports 2.5 years of sobriety. Currently taking naltrexone for alcohol use disorder management. Plan: - Continue naltrexone 50 mg PO daily - Encourage continued abstinence from alcohol - refill not needed at this time. Iron Deficiency Anemia Assessment: Patient received an iron infusion 2 weeks ago, the first in 8-9 years. Reports significant improvement in energy levels, sleep, and breathlessness since the infusion. Plan: - Monitor for continued improvement in symptoms related to iron deficiency - Discuss need for regular iron level monitoring at next appointment Obstructive Sleep Apnea Assessment: Patient reports using CPAP every night for management of obstructive sleep apnea. Plan: - Continue nightly CPAP use - refill armodafinil 200 mg PO daily - Assess sleep quality and daytime fatigue at next follow-up The note is transcribed using speech recognition software. It is a reflection of a visit with the patient. It might have some inaccuracy, including medication names and transcribing errors, though efforts have been made to correct them. 08/25/2024 Other Insomnia Assessment: Patient reports difficulty sleeping through the night for the past couple of months. He describes a recent episode where he only got an hour and a half of sleep on Wednesday night, which affected his work performance by Wednesday. The patient is currently taking armodafinil, which may be contributing to his sleep disturbances. He uses a CPAP machine nightly for sleep apnea management. Plan: - Refill armodafinil 200 mg daily - Advise taking armodafinil earlier in the morning to minimize sleep disturbances - Continue CPAP use nightly - likely exacerbated by starting new job, correlating with onset of complaint. 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 Despite this, he states that he likes his job when performing his expected duties. The patient considers himself stable and has been on the same medication dosages for an extended period. Plan: - Continue current medication regimen: - Rexulti (brexpiprazole) 2 mg PO daily - Duloxetine 60 mg PO daily - Monitor anxiety levels, especially in relation to work stressors - Encourage use of coping strategies for work-related anxiety - Follow up if anxiety symptoms worsen or interfere with job performance Alcohol Use Disorder, in remission Assessment: Patient reports 9 months of sobriety from alcohol use. Plan: - Continue naltrexone as prescribed - Encourage ongoing abstinence and participation in recovery activities - Monitor for any signs of relapse or cravings The note is transcribed using speech recognition software. It is a reflection of a visit with the patient. It might have some inaccuracy, including medication names and transcribing errors, though efforts have been made to correct them. Plan Of Treatment Next Appt Details Provider Name:Мария Sung , 10/06/2024 02:15:00 PM, [address] [facility] [facility] [address] [facility] [address], [place], [address], Insurance Providers Payer Name Payer Address Payer Phone Subscriber Number Group Number Insured Name Patient Relationship to Insured Coverage Start Date Coverage End Date [facility] [address] [place] [address] [id number] CARROLL SOLORZANO Self - patient is the insured Medical (General) History Medical History History ICD Code Problems: Alcohol dependence Attention deficit hyperactivity disorder , predominantly inattentive type Generalized anxiety disorder History of alcoholism Long-term current use of drug therapy Morbid obesity Obstructive sleep apnea of adult Severe recurrent major depression withou t psychotic features , hypertension phlebitis acid reflux iron deficiency anemia Surgical History Surgery Date(Month/Year) Cataract surgery (76316) Any surgical history Cosmetic surgery Removal of gallbladder (87313) 8 lasar treatment on left eye detached ret wendi 11/30/2023
[2024-09-29 11:27] LABS: Estimated Glomerular Filt Rate > 60
== END 2024-09-29 10:36 | disposition home or self-care (01) ==
PROVIDERS: PCP Family Medicine; Visit Provider Family Medicine
DX: R93.89 Abnormal findings on diagnostic imaging of other specified body structures (principal)
CPT/HCPCS: 71260; Q9967